=== PATIENT | male | born 1985 | race Caucasian/White ===

== ENCOUNTER 2017-02-22 13:10 | Emergency (ER) | payer MEDICAID ==
[2017-02-22] MEDS ORDERED: TDAP ADULT 0.5 ML INJ (BOOSTRIX) IM ONE (14:11)
[2017-02-22] MEDS ORDERED: OXYCODONE/APAP 5/325 TAB PO ONE (14:14)
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
[2017-02-22] MEDS ORDERED: LET GEL TOPICAL 1 EA SYR TP ONE (15:03)
[2017-02-22 16:26] VITALS: BP 132/74; PULSE 85; RESP 18; TEMP 97.7; O2SAT 96
== END 2017-02-22 16:20 | disposition home or self-care (01) ==
PROC: 2W2LX4Z Dressing of Right Lower Extremity using Bandage (ICD-10-PCS; principal; 2017-02-22)
DX: T24.201A Burn of second degree of unspecified site of right lower limb, except ankle and foot, initial encounter (principal); Z23 Encounter for immunization; X04.XXXA Exposure to ignition of highly flammable material, initial encounter; Y99.8 Other external cause status; Y93.G9 Activity, other involving cooking and grilling